=== PATIENT | male | born 1950 | race Caucasian/White ===

== ENCOUNTER → 2017-04-30 | Outpatient (CLI) | payer MEDICARE ==
--- NOTE | 2017-04-30 09:53 | RAD ---
EXAM DESCRIPTION: Knee,Right Complete CLINICAL HISTORY: 66 years, Male, PAIN IN RIGHT KNEE COMPARISON: FINDINGS: No definite acute fracture or dislocation. Chronic appearing calcification about 4 mm medial to the joint spaces probably posttraumatic. Suspect remote injury here. Patellofemoral joint space shows fairly severe narrowing with spurring. Mild narrowing both medially and laterally. No clearly seen joint effusion. IMPRESSION: No acute fracture or dislocation. Moderate degenerative change particularly patellofemoral joint space. Small calcification medial to the joint space probably old injury Electronically signed by: Caio Gomez MD 04/30/2017 9:52 AM CDT
--- NOTE | 2017-04-30 09:54 | RAD ---
EXAM DESCRIPTION: Pelvis CLINICAL HISTORY: 66 years, Male, PAIN IN RIGHT HIP COMPARISON: FINDINGS: Pelvic ring intact. Mild degenerative narrowing both hips more on the right. Some spurring at the right greater trochanter may be bursitis. Mild sacroiliac degenerative change one the right. IMPRESSION: No fracture or dislocation. Mild degenerative changes present Electronically signed by: Caio Gomez MD 04/30/2017 9:52 AM CDT
== END ==
LOC: RAD 07:39
PROVIDERS: ATTEND Orthopaedic Surgery
DX: M25.561 Pain in right knee (principal); M25.551 Pain in right hip

== ENCOUNTER → 2017-09-02 | Outpatient (CLI) | payer MEDICARE | END | disposition home or self-care (01) | LOC: LAB.O 08:32 | PROVIDERS: ATTEND Orthopaedic Surgery | DX: Z01.818 Encounter for other preprocedural examination (principal) ==

== ENCOUNTER 2017-09-08 05:48 | Inpatient (IN) | payer MEDICARE ==
--- NOTE | 2017-09-03 10:00 | HP ---
CHIEF COMPLAINT: Knee pain. HISTORY OF PRESENT ILLNESS: Sonny is a 66-year-old male with a history of pain in the right knee. He has had no trauma related to this, denies any radiation of pain and denies any neurologic symptoms. He has had multiple injections, anti-inflammatories and physical therapy, however, has failed to get any relief with those interventions. Because of his ongoing pain and dysfunction associated with it, he is requesting operative intervention. After discussing the risks, benefits and alternatives to that, the patient has given informed consent. PAST SURGICAL HISTORY: 1. Cardiac stent placement. MEDICATIONS: 1. Aspirin. 2. Hydrocodone. 3. Losartan. 4. Simvastatin. 5. Meloxicam. ALLERGIES: DILAUDID. CODE STATUS: Full code. IMMUNIZATIONS: Up to date. SOCIAL HISTORY: The patient does not smoke or use any illicit drugs. He does drink on occasion. FAMILY HISTORY: None pertinent to today's complaint. REVIEW OF SYSTEMS: Negative except as indicated in the History of Present Illness. PHYSICAL EXAMINATION: VITAL SIGNS: Blood pressure 173/112. Pulse 91. Height 5'11". Weight 237. MENTAL STATUS: The patient is awake, alert, and is able to give a good history and participate in the physical. The patient is oriented to person, place and time. SKIN: Normal tone and turgor. HEENT: Normocephalic, atraumatic. Pupils equal, round and reactive. Mucosal membranes are moist. NECK: Normal range of motion. No thyromegaly, no lymphadenopathy. CHEST: Normal respiratory excursion. CARDIAC: Regular rate and rhythm. No murmurs, rubs or gallops. MUSCULOSKELETAL: The bilateral upper extremities show full active range of motion. He has intact sensation in the extremities and they are warm and well perfused. He has no crepitus or malalignment with range of motion. Strength is 5/5. The left lower extremity shows full range of motion of the hip and knee range of motion is from full extension to 125 degrees. He has no malalignment. Sensation is intact. It is warm and well perfused. The right lower extremity shows full range of motion of the hip without significant pain. He is diffusely tender about the knee with pretty severe pain along the medial aspect to palpation. He has pain laterally, but decreased relative to the medial side. He has crepitus throughout his range of motion, but does maintain full extension with flexion to about 120 degrees. He has no varus/ valgus or anterior/posterior laxity. IMAGING: X-rays show arthritis of the knee. There does not appear to be any acute bony abnormality. ASSESSMENT: 1. Osteoarthritis, failed conservative measures. PLAN: The plan at this point is for total knee arthroplasty. We have discussed the risks, benefits, and alternatives to that and the patient has given informed consent. [facility][id number] [facility]
[2017-09-08] MEDS ORDERED: SODIUM CHL 0.9% 100ML MINI-BAG 100 ML IVPB ONE (06:01)
[2017-09-08] MEDS ORDERED: VANCOMYCIN HCL INJ 1,000 MG VIAL IVPB ONE ×3 (06:01→18:23)
[2017-09-08] MEDS ORDERED: TRANEXAMIC ACID 1,000 MG/10 ML VIAL ONE ×2 (06:01→06:02)
[2017-09-08] MEDS ORDERED: ceFAZolin SODIUM 1 GM VIAL ONE ×2 (06:01→06:34)
[2017-09-08] MEDS ORDERED: LACTATED RINGERS 1,000 ML ONE ×2 (06:01→06:03)
[2017-09-08] MEDS ORDERED: SODIUM CHLORIDE 0.9% 100ML 100 ML IVPB ONE (06:02)
[2017-09-08] MEDS ORDERED: fentaNYL CITRATE INJ 50 MCG/ML AMP ONE (06:02)
[2017-09-08] MEDS ORDERED: SODIUM CHLORIDE 0.9% 250ML 250 ML ONE ×2 (06:02→18:23)
[2017-09-08] MEDS ORDERED: MIDAZOLAM INJ 2 MG/2 ML VIAL ONE (06:03)
[2017-09-08] MEDS ORDERED: MORPHINE SULFATE *EPIDURAL* 0.5 MG/ML VIAL ONE (06:03)
[2017-09-08] MEDS ORDERED: FLUMAZENIL 0.1 MG/ML VIAL ONE (06:59)
[2017-09-08] MEDS ORDERED: KCL 20 MEQ/NS 1,000 ML IVS ONE (07:36)
--- NOTE | 2017-09-08 07:44 | RAD ---
EXAM DESCRIPTION: Chest,2 Views CLINICAL HISTORY: PREOP COMPARISON: None FINDINGS: Two-view chest x-ray shows enlargement of the cardiac silhouette without pulmonary vascular congestion. Moderate tortuosity the thoracic aorta is seen. The lungs are normally aerated and clear. Costophrenic angles are sharp. Moderate disc degenerative changes of the spine are seen. IMPRESSION: No radiographic evidence of acute cardiopulmonary disease. Electronically signed by: Darrius Sanford MD 09/08/2017 7:43 AM MAINTENANCE SPECIALIST
[2017-09-08] MEDS ORDERED: BUPIVACAINE 0.25% W/EPI 50 ML VIAL INJ ONE (08:55)
[2017-09-08] MEDS ORDERED: BENZOCAINE-MENTH LOZ (CEPACOL) 1 EA LOZ MT PRN (09:30)
[2017-09-08] MEDS ORDERED: MAGNESIUM HYDROXIDE 30 ML UD PO PRN (09:30)
[2017-09-08] MEDS ORDERED: PROMETHAZINE HCL INJ 12.5 MG in SODIUM CHLORIDE 0.9% 50ML 50 ML IVPB PRN (09:30)
[2017-09-08] MEDS ORDERED: MORPHINE SULFATE INJ 10 MG/ML VIAL IV PRN (09:30)
[2017-09-08] MEDS ORDERED: ONDANSETRON INJ 4 MG/2 ML VIAL IV PRN (09:30)
[2017-09-08] MEDS ORDERED: TEMAZEPAM 15 MG CAP PO PRN (09:30)
[2017-09-08] MEDS ORDERED: SODIUM CHLORIDE 0.9% (FLUSH) 10 ML SYG IV PRN (09:30)
[2017-09-08] MEDS ORDERED: DEX 5% W/NACL 0.45% 1000ML 1,000 ML IVS PRN (09:30)
[2017-09-08] MEDS ORDERED: PROMETHAZINE HCL INJ 25 MG in SODIUM CHLORIDE 0.9% 50ML 50 ML IVPB PRN (09:30)
[2017-09-08] MEDS ORDERED: ALUMINUM & MAGNESIUM HYDROXIDE 30 ML UD PO PRN (09:30)
[2017-09-08] MEDS ORDERED: ACETAMINOPHEN 500 MG TAB PO PRN (09:30)
[2017-09-08] MEDS ORDERED: ZOLPIDEM TARTRATE 5 MG TAB PO PRN (09:30)
[2017-09-08] MEDS ORDERED: NALOXONE HCL INJ 0.4 MG/ML VIAL IV PRN (09:30)
[2017-09-08] MEDS ORDERED: MORPHINE SULFATE INJ 10 MG/ML VIAL IM PRN (09:30)
[2017-09-08] MEDS ORDERED: BISACODYL SUPPOSITORY 10 MG PR PRN (09:30)
[2017-09-08] MEDS ORDERED: TRANEXAMIC ACID INJ 1,000 MG in SODIUM CHLORIDE 0.9% 100ML 100 ML IVPB ONE (09:30)
[2017-09-08] MEDS ORDERED: MORPHINE PCA 1 MG/ML 100ML 1 BAG in PREMIX BAG 1 BAG IVPB SCH (09:30)
[2017-09-08] MEDS ORDERED: ACETAMINOPHEN 325 MG TAB PO PRN (09:30)
[2017-09-08] MEDS ORDERED: MORPHINE PCA 1 MG/ML 100 ML BAG IVPB ONE (09:38)
[2017-09-08] MEDS ORDERED: PROPOFOL 200 MG/20 ML VIAL IV ONE (12:00)
[2017-09-08] MEDS ORDERED: LIDOCAINE 1% 10 ML VIAL INJ ONE (12:00)
[2017-09-08] MEDS ORDERED: ATROPINE SULFATE 0.4 MG/ML 1ML VIAL IV ONE (12:00)
--- NOTE | 2017-09-08 13:25 | CONS ---
SUPERVISING PHYSICIAN: Benoit Toussaint MD REASON FOR CONSULTATION: Medical management. HISTORY OF PRESENT ILLNESS: This is a 67-year-old male patient who underwent elective right total knee arthroplasty today. This was done after multiple injection, anti-inflammatories and physical therapy had failed to provide relief. There were no intraoperative complications. The patient is now postoperative on the Medical/Surgical Floor. He is still groggy from anesthesia , however, vital signs are acceptable. is at bedside and is providing most of his medical history at this time. PAST MEDICAL HISTORY: 1. Hypertension. 2. Hyperlipidemia. 3. Coronary artery disease. 4. Transient ischemic attack. PAST SURGICAL HISTORY: 1. Percutaneous transluminal coronary angioplasty with stent in the past. ALLERGIES: DILAUDID. MEDICATIONS: 1. Aspirin. 2. Hydrocodone. 3. Losartan. 4. Simvastatin. 5. Meloxicam. FAMILY HISTORY: Reviewed with his and she states none. SOCIAL HISTORY: The patient does not smoke or utilize illicit drugs, however, he does socially drink on occasion. REVIEW OF SYSTEMS: Cannot be fully obtained due to the fact that he is still somewhat sedated from anesthesia. PHYSICAL EXAMINATION: VITAL SIGNS: Blood pressure 114/79. Heart rate 76. Respiratory rate 14. Temperature 98.2. Oxygen saturation 99%. GENERAL: Mr. Vega is a 67-year-old male patient in no active distress currently. HEENT: Normocephalic, atraumatic. Pupils are equal and reactive. No nasal drainage. Throat with slightly dry buccal mucosa. NECK: Supple. Midline trachea. No jugular venous distention. CHEST: Symmetrical with equal rise and fall of the chest with inspiration and expiration. Lung sounds are clear to auscultation bilaterally. CARDIOVASCULAR: Regular rate and rhythm. Normal S1, S2. ABDOMEN: Soft, obese. Positive bowel sounds. No tenderness to palpation. GENITOURINARY: Deferred. EXTREMITIES: Lower extremities with a brace to the right leg. There is no peripheral edema.. Pulse are 2+. Capillary refill less than 2 seconds. NEUROLOGIC: The patient is, as stated before, somewhat sedated still from anesthesia. However, arouses to verbal stimuli. LABORATORY: I did review his preoperative labs which included a CBC which was unremarkable. Chemistry from yesterday showed potassium 3.1. ASSESSMENT: 1. Right knee osteoarthritis status post right total knee arthroplasty. 2. Hypertension. 3. Hyperlipidemia. 4. History of coronary artery disease. 5. Hypokalemia. PLAN: We will monitor the patient in the Medical/Surgical Unit with postoperative orders by Dr. Ram. This does include pain control as well as physical therapy. Antibiotics have been ordered as well. I resumed his home medications. Labs have been placed in the computer to be run tomorrow. That will recheck his hemoglobin as well as recheck electrolytes. DVT prophylaxis is ordered via postoperative orders as well. The patients espitia take Plavix at home. This was stopped five days prior to surgery. I would discuss resuming this with Dr. Ram tomorrow. Dr. Toussaint is the collaborating physician. #[id number] [facility]
--- NOTE | 2017-09-08 16:07 | RAD ---
EXAM DESCRIPTION: Right knee, 2 views CLINICAL HISTORY: Right total knee arthroplasty FINDINGS/ IMPRESSION: Postsurgical changes right total knee arthroplasty with expected air in the soft tissues. No acute bony abnormality Electronically signed by: Bneoit Gutierrez MD 09/08/2017 4:06 PM [facility]
[2017-09-08] MEDS: IV SET AND CAP CHANGE INJ INJ SCH (17:43)
[2017-09-08] MEDS ORDERED: ceFAZolin SODIUM 2 GRAMS PREMI 50 ML IVPB ONE ×2 (17:45→20:08)
[2017-09-08] MEDS: ceFAZolin SODIUM 2 GRAMS PREMI 2 GM in PREMIX BAG 1 BAG IVPB SCH (17:59)
[2017-09-08] MEDS: CELECOXIB 100 MG CAP PO SCH (18:00)
[2017-09-08] MEDS: VANCOMYCIN HCL INJ 1,000 MG in SODIUM CHLORIDE 0.9% 250ML 250 ML IVPB SCH (18:27)
[2017-09-08] MEDS ORDERED: ENOXAPARIN SODIUM 30 MG/0.3 ML SYG SUBCU ONE (20:08)
[2017-09-08] MEDS: DOCUSATE CALCIUM 240 MG CAP PO SCH (20:54)
[2017-09-08] MEDS: ENOXAPARIN SODIUM 30 MG/0.3 ML SYG SUBCU SCH (21:58)
[2017-09-09] MEDS: ceFAZolin SODIUM 2 GRAMS PREMI 2 GM in PREMIX BAG 1 BAG IVPB SCH ×2 (00:34→09:28)
[2017-09-09] MEDS: CYCLOBENZAPRINE HCL 10 MG TAB PO PRN ×2 (02:41→10:32)
[2017-09-09] MEDS: HYDROcodone 5MG/APAP 325MG 1 EA TAB PO PRN ×3 (02:41→20:39)
[2017-09-09] MEDS ORDERED: SODIUM CHLORIDE 0.9% 250ML 250 ML ONE (05:29)
[2017-09-09] MEDS ORDERED: VANCOMYCIN HCL INJ 1,000 MG VIAL IVPB ONE (05:30)
[2017-09-09] MEDS: VANCOMYCIN HCL INJ 1,000 MG in SODIUM CHLORIDE 0.9% 250ML 250 ML IVPB SCH (06:03)
[2017-09-09] MEDS: traMADol HCL 50 MG TAB PO PRN (06:18)
[2017-09-09] MEDS ORDERED: ceFAZolin SODIUM 2 GRAMS PREMI 50 ML IVPB ONE (07:17)
[2017-09-09] MEDS: CELECOXIB 100 MG CAP PO SCH ×2 (07:25→17:08)
--- NOTE | 2017-09-09 08:20 | PN ---
DATE: 09/08/17 POSTOPERATIVE CHECK SUBJECTIVE: Mr. Vega is doing well and is not having any pain. OBJECTIVE: Afebrile. Vital signs stable. Dressing is clean, dry and intact. ASSESSMENT: Status post total knee arthroplasty. PLAN: The plan is to begin weight-bearing as tolerated on postoperative day 1. He is in his CPM and will continue that with progression as tolerated. #[id number] [facility]
--- NOTE | 2017-09-09 08:37 | OP ---
DATE OF PROCEDURE: 09/08/17 PREOPERATIVE DIAGNOSIS: 1. Osteoarthritis of the knee. POSTOPERATIVE DIAGNOSIS: 1. Osteoarthritis of the knee. PROCEDURE: 1. Total knee arthroplasty. SURGEON: Leonides Ram MD. CARPENTER HELPER MAINTENANCE: Joao Elam CST, SA-C. ANESTHESIA: General. COMPLICATIONS: None. FINDINGS: Severe arthritis of the knee. INDICATION: Mr. Vega has a long history of knee pain for which he has had multiple injections, physical therapy, anti-inflammatories and has continued unfortunately to have pain. Because of his ongoing pain and failure of conservative measures, he has requested operative intervention. After discussing the risks, benefits and alternatives to operative intervention, the patient has given informed consent for total knee arthroplasty. PROCEDURE: The patient was brought to the Operating Room and placed in supine position. General anesthesia was induced and the patient's leg was sterilely prepped and draped. Following prepping and draping, the distal femur was exposed and using an intramedullary guide, the distal femoral cut was made. The appropriate sized cutting block was measured, pinned into place, and the anterior, posterior, and chamfer cuts were made. The ACL was transected and the tibia was subluxed. Both the medial and lateral menisci were removed. An intramedullary guide was used to make the proximal tibial cut. The appropriate sized base plate was placed and a trial polyethylene was placed. The trial femur was placed, the knee was reduced, and the knee was taken through a range of motion. The knee was stable in anterior, posterior, varus and valgus stress. The patella tracked anatomically without evidence of subluxation or dislocation. After trialing, the trial components were removed and the bony surfaces were thoroughly irrigated with saline. Following irrigation, the surfaces were dried and the final components were cemented into place. The excess cement was removed and the remaining cement was allowed to cure. The knee was again taken through a range of motion to confirm stability. The wound was then irrigated with saline and closure was performed using PDS to approximate the arthrotomy followed by closure of the subcutaneous tissues with a combination of running and interrupted Monocryl sutures. Sterile dressing was placed. The patient was awoken from anesthesia and taken to Recovery. POSTOPERATIVE INSTRUCTIONS: The patient will be weight-bearing as tolerated on postoperative day 1. COMPONENTS: [place] [employer] knee, size 7 femur, size 6 tibia, 9 mm insert. #[id number] [facility]
[2017-09-09] MEDS: hydroCHLOROthiazide 12.5 MG CAP PO SCH (09:28)
[2017-09-09] MEDS: MAGNESIUM OXIDE 400 MG TAB PO SCH (09:28)
[2017-09-09] MEDS: LOSARTAN POTASSIUM 100 MG TAB PO SCH (09:28)
[2017-09-09] MEDS: GABAPENTIN 100 MG CAP PO SCH (09:28)
[2017-09-09] MEDS: ENOXAPARIN SODIUM 30 MG/0.3 ML SYG SUBCU SCH ×2 (09:29→22:24)
[2017-09-09] MEDS ORDERED: POTASSIUM CHLORIDE 20 MEQ TAB PO ONE (13:17)
--- NOTE | 2017-09-09 14:42 | PN ---
SUPERVISING PHYSICIAN: Benoit Toussaint MD DATE: 09/09/17 SUBJECTIVE: The patient is sitting up in a chair at this time. He just finished some physical therapy. He is complaining of some knee pain. He got some medication about 10 minutes prior to my entering the room and it has not quite taken effect yet. There were no significant overnight events. OBJECTIVE: VITAL SIGNS: Blood pressure 149/80. Heart rate 76. Respiratory rate 18. Temperature 97.0. Oxygen saturation 87% on room air this morning. He was placed in nasal cannula and it improved to 93%. GENERAL: Mr. Vega is in mild distress secondary to pain at this time HEENT: Normocephalic, atraumatic. Pupils are equal and reactive. No nasal drainage. Throat with moist mucosa. NECK: Supple. Midline trachea. No jugular venous distention. CHEST: Symmetrical with equal rise and fall of the chest with inspiration and expiration. Lungs sounds are clear to auscultation bilaterally. CARDIOVASCULAR: Regular rate and rhythm. Normal S1, S2. ABDOMEN: Soft, obese. Positive bowel sounds. EXTREMITIES: Lower extremities with right knee in the brac at this time. No significant peripheral edema. Pulses 2+. Capillary refill is less than 2 seconds. NEUROLOGIC: The patient is alert. LABORATORY: Labs were done. Hemoglobin 13.1, hematocrit 38.8. Chemistry show sodium 138, potassium 3.1, chloride 99, CO2 31, BUN 17, creatinine 0.72, glucose 130, calcium 8.4, magnesium 2.0. ASSESSMENT: 1. Right knee osteoarthritis status post right total knee arthroplasty, postoperative day #1. 2. Hypertension. 3. Hyperlipidemia. 4. History of coronary artery disease. 5. Hypokalemia. PLAN: Continue physical therapy and pain control per postoperative orders. He had a little hypoxia on his O2 sats this morning. We will continue pulmonary hygiene at this time. We will replace his potassium with p.o. supplementation at this time. Continue DVT prophylaxis. Dr. Toussaint is the collaborating physician. [facility][id number] [facility]
[2017-09-09] MEDS: DOCUSATE CALCIUM 240 MG CAP PO SCH (20:39)
[2017-09-09] MEDS: SIMVASTATIN 20 MG TAB PO SCH (20:39)
[2017-09-10] MEDS: traMADol HCL 50 MG TAB PO PRN (05:47)
[2017-09-10] MEDS: CELECOXIB 100 MG CAP PO SCH ×2 (07:39→16:45)
--- NOTE | 2017-09-10 08:25 | PN ---
DATE: 09/09/17 SUBJECTIVE: Mr. Vega is doing well and has good pain control. OBJECTIVE: Afebrile. Vital signs stable. Dressing is clean, dry and intact. ASSESSMENT: Status post total knee arthroplasty. PLAN: He will begin weight-bearing as tolerated and we will progress his CPM as tolerated. #[id number] [facility]
[2017-09-10] MEDS: GABAPENTIN 100 MG CAP PO SCH (09:20)
[2017-09-10] MEDS: MAGNESIUM OXIDE 400 MG TAB PO SCH (09:21)
[2017-09-10] MEDS: LOSARTAN POTASSIUM 100 MG TAB PO SCH (09:21)
[2017-09-10] MEDS: hydroCHLOROthiazide 12.5 MG CAP PO SCH (09:21)
[2017-09-10] MEDS: SODIUM CHLORIDE 0.9% (FLUSH) 10 ML SYG IV SCH ×2 (09:25→21:24)
[2017-09-10] MEDS: ENOXAPARIN SODIUM 30 MG/0.3 ML SYG SUBCU SCH ×2 (09:35→21:31)
[2017-09-10] MEDS: HYDROcodone 5MG/APAP 325MG 1 EA TAB PO PRN ×2 (09:35→14:45)
[2017-09-10] MEDS: CYCLOBENZAPRINE HCL 10 MG TAB PO PRN (16:46)
--- NOTE | 2017-09-10 19:06 | PCM.CORE ---
Physician DVT/VTE - Nurse DVT Assessment & Total Each Risk Factor Represents 5 Points: Elective Arthtroplasty Each Risk Factor Represents 2 Points: Age 60-74 Each Risk Factor is 1 Point: Obesity (BMI >25) DVT Assessment Score: 8 - 5 or more Very High Risk Treatments: Early Ambulation *, Sequential Compression Device Pharmacological: Enoxaparin 30mg SQ BID
[2017-09-10] MEDS: SIMVASTATIN 20 MG TAB PO SCH (21:24)
[2017-09-10] MEDS: DOCUSATE CALCIUM 240 MG CAP PO SCH (21:24)
--- NOTE | 2017-09-10 21:44 | PN ---
DATE: 09/10/17 SUPERVISING PHYSICIAN: Benoit Toussaint M.D. SUBJECTIVE: The patient is doing well. He has been up with Physical Therapy. He is currently using his CPM. He has had good pain control. He has had no complaints overnight. He remains afebrile. OBJECTIVE: VITAL SIGNS: Temperature 98.1, pulse 95, blood pressure 153/86, respirations 20, satting 95% on room air. I's and O's show a negative balance of 370 with 830 in, 1200 out. He has had 1 bowel movement. CHEST: Lungs are clear to auscultation bilaterally. HEART: Regular rate and rhythm. ABDOMEN: Obese but soft, non-tender. Positive bowel sounds. EXTREMITIES: Right knee has a dressing overlying the incision site. It is clean and dry. There is minimal erythema. There are no signs of infection. Distally pulses are strong. Capillary refill is brisk. NEUROLOGIC: He is alert and oriented times three. LABORATORY: There is no laboratory today to report nor is there any radiology. ASSESSMENT: 1. Postoperative day 2 for total right knee arthroplasty for right knee osteoarthritis having failed to respond to outpatient treatment plan with surgery being performed by Dr. Leonides Ram. 2. Hypertension. 3. Hyperlipidemia. 4. History of coronary artery disease. 5. Hypokalemia likely secondary to ongoing diuretics with Hydrochlorothiazide. PLAN: Will continue to follow the patient as he progresses through physical therapy. Will anticipate discharging tomorrow to continue with physical therapy in the outpatient setting on a rehab facility. Arrangements are being made for both a walker and other needs at home as well as an appointment for continued physical therapy. Will plan to again hopefully discharge tomorrow. Until then, continue to monitor and treat appropriately. #[id number] [facility]
[2017-09-11] MEDS: CELECOXIB 100 MG CAP PO SCH (07:56)
--- NOTE | 2017-09-11 08:48 | PN ---
DATE: 09/10/17 SUBJECTIVE: Mr. Vega is doing well. His pain is well controlled. OBJECTIVE: Afebrile. Vital signs stable. Wound is clean. There are no signs or symptoms of infection. ASSESSMENT: Status post total knee arthroplasty. PLAN: He will continue with weight-bearing as tolerated and increasing CPM. #[id number] [facility]
--- NOTE | 2017-09-11 08:51 | PN ---
DATE: 09/11/17 SUBJECTIVE: Mr. Vega is doing well. He has great pain control and is getting up and out of bed by himself. OBJECTIVE: Afebrile. Vital signs stable. Wound is clean. There are no signs or symptoms of infection. ASSESSMENT: Status post total knee arthroplasty. PLAN: The plan at this point is for discharge. He will be doing outpatient physical therapy. He will followup with us in 2 weeks, but he has been instructed to return immediately should any change in his condition occur. [facility][id number] [facility]
[2017-09-11] MEDS: MAGNESIUM OXIDE 400 MG TAB PO SCH (08:53)
[2017-09-11] MEDS: LOSARTAN POTASSIUM 100 MG TAB PO SCH (08:53)
[2017-09-11] MEDS: CYCLOBENZAPRINE HCL 10 MG TAB PO PRN (08:53)
[2017-09-11] MEDS: GABAPENTIN 100 MG CAP PO SCH (08:53)
[2017-09-11] MEDS: HYDROcodone 5MG/APAP 325MG 1 EA TAB PO PRN (08:53)
[2017-09-11] MEDS: hydroCHLOROthiazide 12.5 MG CAP PO SCH (08:53)
[2017-09-11] MEDS: SODIUM CHLORIDE 0.9% (FLUSH) 10 ML SYG IV SCH (08:54)
[2017-09-11] MEDS: ENOXAPARIN SODIUM 30 MG/0.3 ML SYG SUBCU SCH (08:54)
[2017-09-11 09:36] VITALS: BP 146/80; TEMP 96.4; O2SAT 95
[2017-09-11] MEDS: IV SET AND CAP CHANGE INJ INJ SCH (09:44)
[2017-09-11] MEDS ORDERED: MAGNESIUM HYDROXIDE 30 ML UD PO ONE (21:00)
[2017-09-11] MEDS ORDERED: BISACODYL SUPPOSITORY 10 MG PR ONE (21:00)
--- NOTE | 2017-09-15 08:50 | DS ---
SUPERVISING PHYSICIAN: Benoit Toussaint MD DISCHARGE DIAGNOSIS: 1. Postoperative day 3 for total right knee arthroplasty for right knee osteoarthritis having failed to respond to outpatient treatment plan with surgery being performed by Dr. Leonides Ram. 2. Hypertension. 3. Hyperlipidemia. 4. History of coronary artery disease. 5. Hypokalemia, likely secondary to ongoing diuretics with hydrochlorothiazide , stable. REASON FOR HOSPITALIZATION: Mr. Vega is a 67-year-old male patient who underwent elective right total knee arthroplasty on 09/08/17. He had had multiple attempts at outpatient treatment with multiple injections, anti- inflammatories and physical therapy, but had failed to receive any significant relief. The patient was seen in the immediate postoperative phase and followed through admission. LABORATORY: CBC on 09/07/17 was within normal limits with hemoglobin 15.2, hematocrit 44.2. Postoperative hemoglobin and hematocrit were 13.1 and 38.8. Chemistries showed a hypokalemia with a potassium 3.1 both on admission and at time of discharge. Urinalysis was within normal limits. MICROBIOLOGY: No specimens. RADIOLOGY: No additional studies. HOSPITAL COURSE: Mr. Vega was admitted on 09/08/17 for elective right total knee arthroplasty having been performed by Dr. Leonides Ram. He was followed through his postoperative phase. He did well with physical therapy and clinically progressed well enough to be discharged to continue with outpatient treatment plan. PLAN: Mr. Vega is discharged on 09/11/17 with instructions to followup with Dr. Ram as scheduled. He was to have continued rehabilitation at [facility]. He was to resume his home medications as prior to hospitalization and take new prescriptions as directed. He was told to call Dr. Ram's office or return to the hospital should he have any concerning symptoms. At discharge, diet was regular diet as tolerated. His activity was to be as per physical therapy. He may take a shower, but no tub baths. Wound care as per Dr. Ram's postoperative care instructions. MEDICATIONS AT DISCHARGE: 1. Flexeril 10 mg tablets q.8h. as needed for spasms, #15. 2. [place] 5/[address] Ram. 3. Xarelto 10 mg tablets daily for additional 8 days. No other medications were added to his regimen. He was discharged in stable condition and improved. [facility][id number] [facility]
== END 2017-09-11 11:59 | disposition home or self-care (01) | DRG 470 ==
LOC: AMB 05:48 → MS 11:00
PROVIDERS: ADMIT Orthopaedic Surgery; ATTEND Orthopaedic Surgery
PROC: 0SRC0J9 Replacement of Right Knee Joint with Synthetic Substitute, Cemented, Open Approach (ICD-10-PCS; principal; 2017-09-08 07:00)
DX: M17.11 Unilateral primary osteoarthritis, right knee (principal); E87.6 Hypokalemia; R09.02 Hypoxemia; I10 Essential (primary) hypertension; E78.5 Hyperlipidemia, unspecified; T50.2X5A Adverse effect of carbonic-anhydrase inhibitors, benzothiadiazides and other diuretics, initial encounter; I25.10 Atherosclerotic heart disease of native coronary artery without angina pectoris; E66.9 Obesity, unspecified; Z86.73 Personal history of transient ischemic attack (TIA), and cerebral infarction without residual deficits; Z95.5 Presence of coronary angioplasty implant and graft; Z88.5 Allergy status to narcotic agent; Z79.82 Long term (current) use of aspirin; Z79.1 Long term (current) use of non-steroidal anti-inflammatories (NSAID); Z79.899 Other long term (current) drug therapy; Y92.009 Unspecified place in unspecified non-institutional (private) residence as the place of occurrence of the external cause; Z68.33 Body mass index [BMI] 33.0-33.9, adult